=== PATIENT | male | born 1950 | race Caucasian/White ===

== ENCOUNTER 2019-07-06 18:37 | Inpatient (IN) | payer OTHER ==
[~2019-07-06] VITALS: Ht 188 cm; Wt 154.3 kg
--- NOTE | ~2019-07-06 | HEMODYNAMI ---
PATIENT:PINA CHAUDHRY MEDICAL RECORD: [id number] : 50 [facility] ADMISSION DATE: 07/06/19 Generatedon:07/07/201916:04 Patient name: PINA CHAUDHRY Patient #: [id number] : 1950 Date of study: 07/07/2019 Page: Of Hemodynamic Procedure Report Patient Data Patient Demographics Procedure consent was obtained First Name: PINA Gender: Male Last Name: RICHA : 1950 Patient #: [id number] Age: 69 year(s) Race: SSN: [id number] Additional ID: [id number] Contact details Address: [address] [place] [address] State: [place] City: [place] Zip code: [address] Admission Admission Data Admission Date: 07/06/2019 Admission Time: 20:13 Arrival Date: 07/06/2019 Arrival Time: 20:13 Admit Source: Emergency Insurance Payor: Private department health insurance Room #: D.2139 [facility] #: [id number] Height (in.): 73.62 BSA: 2.73 (m2) Height (cm.): 187 BMI: 44.9 (kg/m2) Weight (lbs.): 346.13 Weight (kg.): 157 Lab Results Lab Result Date: 07/07/2019 Lab Result Time: 0:00 Biochemistry Name Units Result Min Max BUN mg/dl 24 --(----)-* 7 18 Creatinine mg/dl 1.3 --(---*)-- 0.6 1.3 eGFR ml/min 58 *-(----)-- 90 120 NONAFRICAN CBC Name Units Result Min Max Hemoglobin g/dl 14.5 --(*---)-- 13.5 17.5 Procedure Procedure Types Cath Procedure Diagnostic Procedure [facility] w/Coronaries Sedation Charges Moderate Sedation up to 30 minutes PCI Procedure Coronary Stent Coronary Stent Initial Procedure Description Procedure Date Procedure Date: 07/07/2019 Procedure Start Time: 15:37 Procedure End Time: 16:00 Procedure Staff Name Function Justin Huggins MD Performing Physician Kathrine Arteaga RT Monitor Margot Sapp RT Scrub Sreedhar Kline RN Nurse Jennifer Woods RN Nurse Indication Angina Procedure Data Cath Procedure Fluoroscopy Diagnostic fluoroscopy Total fluoroscopy Time: 4.6 time: 4.6 min min Diagnostic fluoroscopy Total fluoroscopy dose: dose: 1477 mGy 1477 mGy Contrast Material Contrast Material Type Amount (ml) Isovue 300 101 Entry Location Entry Primary Successful Side Size Upsize Upsize Entry Closure Calvillo ccessful Closure Location (Fr) 1 (Fr) 2 (Fr) Remarks Device Remarks Radial Right 6 Fr Mechanical artery Short Compression Estimated blood loss: 5 ml Diagnostic catheters Device Type Used For End Catheter Placement DIAGNOSTIC Beaumont 110cm 5 Multi-vessel Fr catheter ([id number]) Angiography Procedure Complications No complications Procedure Medications Medication Administration Route Dosage 0.9% NaCl I.V. 100 ml/hr Oxygen etCO2 Nasal cannula 2 l/min Lidocaine 2% added to field 20 Heparin Flush Bag added to field 2 bags (1000units/500ml NS) Radial Cocktail added to field 1 syringe (Verapamil 2mg/Nitro 400mcg/Heparin 1500units) Versed I.V. 2 mg Fentanyl I.V. 50 mcg Versed I.V. 2 mg Fentanyl I.V. 50 mcg Heparin Bolus I.V. 5000 units Hemodynamics Rest BSA: 2.73 (m2) HGB: 14.5 (g/dl) O2 Consumption: Estimated: 326.67 (ml/min) O2 Co nsumption indexed: Estimated:119.66 (ml/min/m) Heart Rate: 80 (bpm) Pressure Samples Time Site Value (mmHg) Purpose Heart Use Rate(bpm) 15:41 LV 100/3,7 Snapshot 91 Gradients Valve Time Site Site Mean SEP/DFP Peak To Heart Use 1 2 (mmHg) (sec/min) Peak Rate (mmHg) (bpm) Aortic 15:42 LV AO 57 Snapshots Pre Cath Intra NCS Post Cath Vital Signs Time Heart Resp SPO2 etCO2 NIBP (mmHg) Rhythm Pain Sedation Rate (ipm) (%) (mmHg) Status Level (bpm) 15:17:59 79 23 97 39.8 166/80(108) NSR 0 (11) 10(A) , No pain 15:22:23 77 21 96 36.8 166/76(103) NSR 0 (11) 10(A) , No pain 15:26:44 74 23 96 38.3 157/76(105) NSR 0 (11) 10(A) , No pain 15:31:02 74 19 96 30.8 152/71(106) NSR 0 (11) 10(A) , No pain 15:35:18 72 24 97 50 148/79(109) NSR 0 (11) 10(A) , No pain 15:39:36 77 20 95 18 151/75(103) NSR 0 (11) 9(A) , No pain 15:43:56 79 19 95 36 138/66(98) NSR 0 (11) 9(A) , No pain 15:48:16 83 21 93 39.8 152/60(94) NSR 0 (11) 9(A) , No pain 15:52:32 83 22 92 50.3 146/71(99) NSR 0 (11) 9(A) , No pain 15:56:56 81 20 92 45 158/77(99) NSR 0 (11) 10(A) , No pain Medications Time Medication Route Dose Verified Delivered Reason Not es Effectiveness by by 15:16:55 0.9% NaCl I.V. 100 Justin Jennifer used for ml/hr Bhavna Chuck procedure MD ESPINAL 15:17:00 Oxygen etCO2 2 l/min Justin Jennifer [facility]ula MD ESPINAL 15:17:06 Lidocaine 2% added 20ml Justin Anderson [facility] WATERS 15:17:11 Heparin Flush added 2 bags Justin Anderson used for [facility] (1000units/500ml field MD WATERS NS) 15:17:16 Radial Cocktail added 1 Justin Anderson used for (Verapamil to syringe Bhavna Bhavna procedure 2mg/Nitro field MD WATERS 400mcg/Heparin 1500units) 15:26:23 Versed I.V. 2 mg Justin Jennifer for sedation St Pina Woods MD, RN 15:26:28 Fentanyl I.V. 50 mcg Justin Jennifer for sedation St Pina Woods MD, RN 15:34:27 Fentanyl I.V. 50 mcg Justin Jennifer for sedation St Pina Woods MD RN 15:34:27 Versed I.V. 2 mg Justin Rodriguez for sedation St Pina Woods MD RN 15:46:57 Heparin Bolus I.V. 5000 Justin Rodriguez for albert ified units St Pina Woods anticoagulation with Dr. MD TEDDY Bass Procedure Log Time Note 18:40:47 Family unavailable. 14:22:44 Diagnostic Cath Status : Urgent 14:24:18 Indication : Angina 14:24:46 Informed consent obtained and on chart 14:24:53 Procedure Status Urgent Heart Cath (IP). 14:24:58 Kathrine Arteaga RT(R) sent for patient. Start room use. 14:25:01 Time tracking: Regular hours (M-F 7:00 - 5:00) 14:25:06 Plan of Care:Hemodynamics will remain stable., Cardiac rhythm will remain stable., Comfort level will be maintained., Respiratory function will remain adequate., Patient/ family verbilizes understanding of procedure., Procedure tolerated without complication., Recovers from procedure without complications.. 14:34:45 Admit Source: Emergency department 14:34:56 Arrival Date: 07/06/2019 8:13:00 PM 14:35:26 Insurance Payor : Private health insurance 14:35:50 Patient Height : 73.62 inches 14:36:10 Patient Weight : 346.13 lbs 14:37:05 Lab Result : BUN 24 mg/dl 14:37:05 Lab Result : eGFR NONAFRICAN 58 ml/min 14:37:05 Lab Result : Hemoglobin 14.5 g/dl 14:37:05 Lab Result : Creatinine 1.3 mg/dl 15:16:45 Vital chart was started 15:16:55 0.9% NaCl 100 ml/hr I.V. was administered by Jennifer Woods RN; used for procedure; Verbal order read back and verified. 15:17:00 Oxygen 2 l/min etCO2 Nasal cannula was administered by Jennifer Woods RN; used for procedure; Verbal order read back and verified. 15:17:06 Lidocaine 2% 20ml vial added to field was administered by Justin Huggins MD; for local anesthetic; Verbal order read back and verified. 15:17:11 Heparin Flush Bag (1000units/500ml NS) 2 bags added to field was administered by Justin Huggins MD; used for procedure; Verbal order read back and verified. 15:17:16 Radial Cocktail (Verapamil 2mg/Nitro 400mcg/Heparin 1500units) 1 syringe added to field was administered by Justin Huggins MD; used for procedure; Verbal order read back and verified. 15:19:50 Patient received from Med II to CCL 2 Alert and oriented. Tansferred to table in Supine position. 15:19:52 Warm blankets applied, and carmen hugger turned on for patient comfort. 15:19:52 Correct patient and procedure confirmed by team. 15:19:53 Baseline sample Acquired. 15:19:53 ECG and BP/O2 sat monitors applied to patient. 15:19:56 Rhythm: sinus rhythm 15:19:58 Full Disclosure recording started 15:20:02 H&P Date Dictated: 07/07/2019 New H&P dictated by physician.. 15:20:10 Pre-procedure instructions explained to patient. 15:20:10 Pre-op teaching completed and patient verbalized understanding. 15:20:22 Patient NPO since Midnight. 15:20:25 Is the patient allergic to Iodine/contrast media? No. 15:20:26 Was the patient premedicated? Yes 15:20:34 Is patient on blood thinner?Yes 15:20:37 ACC The patient was administered the following blood thiners within the last 24 hours: ACCPlavix 15:20:54 Patient diabetic? No. 15:20:56 Previous problem with sedation/anesthesia? No ? 15:21:00 Snore? Yes 15:21:01 Sleep apnea? Yes 15:21:09 Deviated septum? No 15:21:09 Opens mouth fully? Yes 15:21:10 Sticks out tongue? Yes 15:21:14 Airway obstruction? No ? 15:21:34 Dentures? No ? 15:22:11 Pre procedure: right dorsailis pedis pulse 2+ Normal; easily identifiable; not easily obliterated 15:22:21 Pre procedure: left dorsailis pedis pulse 2+ Normal; easily identifiable; not easily obliterated 15:22:29 Patient pain scale 0/10 ?. 15:22:36 IV patent on arrival in left forearm with 0.9% NaCl at O. 15:22:38 Lab results completed and on chart. 15:22:43 Risk of Mortality: 0.1 15:22:48 Risk of blood transfusion: <0.1 15:22:53 Risk of BETH: 2.0 15:23:10 Right Radial & Right Groin area was prepped with chlora-prep and draped in sterile fashion 15:23:11 Alarms reviewed by R. N. 15:23:11 Sharps counted by scrub and verified by R.N. 15:23:13 Physician arrived 15::13 --------ALL STOP TIME OUT------ 15:23:14 Final Timeout: patient, procedure, and site verified with staff and physician. All members of the team are in agreement. 15:23:16 Right Radial & Right Groin site verified by team. 15:23:20 Fire Safety Assessment: A--An alcohol-based skin anteseptic being used preoperatively., C--Open oxygen or nitrous oxide is being used., D--An ESU, laser, or fiber-optic light is being used. 15:23:30 Physical assessment completed. ASA score P 2 - A patient with mild systemic disease as per Justin Huggins MD. 15:26:23 Versed 2 mg I.V. was administered by Jennifer Woods RN; for sedation; Verbal order read back and verified. 15:26:28 Fentanyl 50 mcg I.V. was administered by Jennifer Woods RN; for sedation; Verbal order read back and verified. 15:28:04 3a) 45-59 Moderately reduced kidney function. 15:28:07 Maximum allowable contrast dose (3.7 X eGFR X 0.75)160 ml. 15:28:12 Sedation plan: IV Moderate Sedation Medication:Versed, Fentanyl 15:28:18 Use device set Radial Dx or PCI 15:28:20 ACIST Syringe (06823) opened to sterile field. 15:28:20 Medline Cath Pack ([id number]) opened to sterile field. 15:28:21 Bag Decanter (2002) opened to sterile field. 15:28:21 ACIST Hand Control (62252) opened to sterile field. 15:28:22 ACIST Manifold (61061) opened to sterile field. 15:28:23 Tegaderm 4 x 4 (1626W) opened to sterile field. 15:28:24 MBrace Wrist Support ([id number]) opened to sterile field. 15:28:28 SHEATH 6FR RAIN (3050880) opened to sterile field. 15:28:30 EMERALD Guide Wire (055-705) opened to sterile field. 15:34:27 Fentanyl 50 mcg I.V. was administered by Jennifer Woods RN; for sedation; Verbal order read back and verified. 15:34:27 Versed 2 mg I.V. was administered by Jennifer Woods RN; for sedation; Verbal order read back and verified. 15:36:38 Procedure started. 15:37:11 Local anesthetic to right radial artery with Lidocaine 2% by Justin Huggins MD.INITIAL ACCESS ONLY 15:38:37 A 6 Fr Short sheath was inserted into the Right Radial artery 15:40:25 A DIAGNOSTIC Beaumont 110cm 5 Fr catheter ([id number]) was advanced over the wire and used for Multi-vessel Angiography. 15:41:59 LV hemodynamics recorded. 15:42:00 LV gram done using MCKEON 15:42:05 Injector settings: Ml/sec: 5, Volume: 15, 15:42:18 EF : 55 % 15:42:48 RCA angiography performed. 15:42:52 Injector settings: Ml/sec: 3, Volume: 6, 15:43:52 LCA angiography performed. 15:43:56 Injector settings: Ml/sec: 3, Volume: 6, 15:45:42 Catheter removed. 15:46:21 Proceeding to intervention. 15:46:57 Heparin Bolus 5000 units I.V. was administered by Jennifer Woods RN; for anticoagulation; verified with Dr. Bass Verbal order read back and verified. 15:48:14 INFLATOR Merit BasixCompak (DM4985) opened to sterile field. 15:48:14 Asahi Minamo 300cm wire opened to sterile field. 15:48:15 GUIDE 6FR XBLAD 3.5 catheter ([id number]) opened to sterile field. 15:48:20 ACC Pre-intervention ANA Flow is 3. 15:48:29 6 Fr xblad 3.5 guide catheter was inserted over the wire 15:49:18 minamo wire advanced. 15:51:20 Wire advanced across lesion. 15:52:24 Place stent Inflation Number: 1 A ANIKA OTW 3.5 x 12 stent ([id number]) was prepped and advanced across the Mid CX 90. The stent was deployed at 14 SUSAN for 0:30 (min:sec) 0. 15:53:39 Stent catheter was removed intact over wire. 15:53:40 Wire removed. 15:53:40 Guide catheter removed. 15:55:01 ZEPHYR LARGE TR BAND (677290) opened to sterile field. 15:55:13 Sheath removed intact; hemostasis achieved with Mechanical Compression to the Right Radial artery. 15:55:28 Procedure ended.(Physican Out) 15:56:21 Fluoroscopy time 04.60 minutes. 15:56:25 Fluoroscopy dose: 1477 mGy 15:56:25 Flurop Dose total: 1477 15:56:31 Dose Area Product 91893 mGy/cm. 15:56:36 Contrast amount:Isovue 300 101ml. 15:56:38 Sharps counted by scrub and verified by R.N. 15:56:40 [place] band inflated with 10cc of air. 15:56:41 Insertion/operative site no bleeding no hematoma. 15:56:46 Post right radial artery:stable 15:56:47 Post Procedure Pulses reassessed and unchanged 15:57:18 Post procedure rhythm: unchanged. 15:57:21 Estimated blood loss: 5 ml 15:57:23 Post procedure instruction explained to patient.Patient verbalizes understanding. 15:57:23 Patient needs reinforcement of post procedure teaching. 15:58:40 Procedure type changed to Cath procedure, Diagnostic procedure, C, [facility] w/Coronaries, Sedation Charges, Moderate Sedation up to 30 minutes, PCI procedure, Coronary Stent, Coronary Stent Initial 15:58:42 Procedure and supply charges have been captured, reviewed, submitted and are correct. 15:59:08 Procedure Complication : No complications 15:59:16 Vital chart was stopped 15:59:24 [facility] Findings: MVD- PCI performed (see procedure note) 15:59:26 Operative report dictated upon procedure completion. 15:59:26 See physician's report for complete and final results. 16:00:10 Report given to [facility] II. 16:00:12 Patient transfered to [facility] with Stretcher. 16:00:15 Procedure ended. 16:00:15 Full Disclosure recording stopped 16:00:27 ACT drawn and resulted at 314 seconds. (normal therapeutic range 180-240 seconds). 16:00:39 ACC-PCI Only Patient was given prescriptions, or instructed by Justin Huggins MD to start/continue the following medications upon discharge: Plavix 16:00:40 End room use (Document Last) 16:03:18 End room use (Document Last) 16:03:54 End room use (Document Last) Intervention Summary Intervention Notes Time ActionType Lesion and Equipment Action# Pressure Duration Attributes Used 15:52:24 Place stent Mid CX ANIKA OTW 3.5 1 14 00:30 x 12 stent ([id number]) Device Usage Item Name Manufacture Quantity Catalog Hospital Part Current Mini mal Lot# / Number Charge Number Stock Stock Serial# Code ACIST Syringe Acist 1 48616 213324 760007 [id number] 20 (14304) Medical Systems Inc Medline Cath Medline 1 [id number] 814167 44691 110051 5 Pack ([id number]) Bag Decanter Microtek 1 2001S 426188 00661 332595 5 (2001S) Medical Inc. ACIST Hand Acist 1 44955 747397 026081 215971 5 Control Medical (34352) Systems Inc ACIST Acist 1 67385 224920 250567 809642 5 Manifold Medical (62145) Systems Inc Tegaderm 4 x 3M 1 1626W 153393 138069 512372 5 4 (1626W) MBrace Wrist Advanced 1 140-0250-00 987162 30125 447083 5 Support Vascular ([id number]) Dynamics SHEATH 6FR Cardinal 1 3939890 752230 5568167 142404 5 [facility] (8286159) EMERALD Guide Cardinal 1 502-455 233282 019198 443767 5 Wire CENTRI Technology (502455) DIAGNOSTIC Terumo 1 40-5363 111978 461660 953542 5 Beaumont 110cm 5 Fr catheter (996111) INFLATOR Merit 1 NJ0103 948710 472329 374007 15 [facility] Medical BasixCompak (ZG9510) [facility] Mino [facility] Intecc 1 [id number] 755426 915559 0 300cm wire GUIDE 6FR Cardinal 1 [id number] 362295 687186 609732 10 XBLAD 3.5 Health catheter (54497857) ANIKA OTW 3.5 Medtronic 1 [id number] 429048 1247960 625564 5 [id number] x 12 stent ([id number]) ZEPHYR LARGE Cardinal 1 029889 892592 6167328 375284 5 [facility] (200498) Signature Audit [place] Stage Time Signature Unsigned Intra-Procedure 07/07/2019 Kathrine Arteaga 4:03:18 PM RT(R) Intra-Procedure 07/07/2019 Sreedhar Kline RN 4:03:54 PM Intra-Procedure 07/07/2019 Justin Burgos 4:04:48 PM Pina WATERS Signatures Performing Physician : Signature : Justin Huggins MD Date : Time : Monitor : Kathrine Arteaga RT Signature : Date : Time : Nurse : Sreedhar Kline RN Signature : Date : Time : Nurse : Jennifer Woods RN Signature : Date : Time : [facility] [address] [place] [address]
[2019-07-06] MEDS ORDERED: ULORIC40 MG PO (19:27)
[2019-07-06] MEDS ORDERED: HYTRIN5 MG PO (19:28)
[2019-07-06] MEDS ORDERED: ELAVIL25 MG PO (19:28)
[2019-07-06] MEDS ORDERED: HYDROCHLOROTHIA25 MG PO (19:28)
[2019-07-06] MEDS ORDERED: ALDACTONE25 MG PO (19:29)
[2019-07-06 19:30] VITALS: BP 128/86
[2019-07-06 19:56] LABS: BASOPHILS 0.3 % (0-2); EOSINOPHILS 2.5 % (0-7); HEMATOCRIT 47.2 % (42.0-54.0); HEMOGLOBIN 15.3 g/dL (13.5-17.5); IMMATURE GRANULOCYTES 0.3 % (0-5); LYMPHOCYTES 10.3 % (15-50); MCH 30.1 pg (26.0-34.0); MCHC 32.4 g/dL (31.0-37.0); MCV 92.9 fL (80.0-100.0); MEAN PLATELET VOLUME 11.2 fL (7.4-10.4); MONOCYTES 8.2 % (2-11); NEUTROPHILS 78.4 % (40-80); PLATELET COUNT 182 10x3/uL (130-400); RBC 5.08 10x6/uL (4.20-6.10); RDW 13.2 % (11.5-14.5); WBC 11.9 10x3/uL (4.8-10.8)
[2019-07-06 20:08] LABS: CALC OSMOLALITY 286 mosm/kg (275-300); CALCIUM 9.2 mg/dL (8.5-10.1); CARBON DIOXIDE 28.2 mmol/L (21.0-32.0); CHLORIDE - SERUM 104 mmol/L (98-107); CREATININE - SERUM 1.3 mg/dL (0.6-1.3); GLUCOSE 104 mg/dL (74-106); POTASSIUM - SERUM 3.5 mmol/L (3.5-5.1); SODIUM 142 mmol/L (136-145); UREA NITROGEN 24 mg/dL (7-18); eGFR NON AFRICAN AMERICAN 58 mL/min (90-120)
[2019-07-06 20:23] LABS: APTT 26.2 SECONDS (22.8-39.4); INR 1.03 (0.85-1.17); PROTIME 13.5 SECONDS (11.6-15.0)
[2019-07-06 20:30] LABS: ALBUMIN 3.4 g/dL (3.4-5.0); ALKALINE PHOSPHATASE 53 U/L (46-116); ALT (SGPT) 34 U/L (10-68); BILIRUBIN - TOTAL 0.58 mg/dL (0.2-1.3); CKMB 20.2 U/L (0.0-3.6); CREATINE KINASE 258 UL (21-232); MAGNESIUM - SERUM 1.5 mg/dL (1.8-2.4); PROTEIN - SERUM 7.7 g/dL (6.4-8.2)
[2019-07-06 20:33] LABS: TROPONIN-I 5.527 ng/mL (0.000-0.060)
--- NOTE | 2019-07-06 21:08 | NUR ---
NOTIFIED DR BELLA OF TROPONIN. 0 NEW ORDERS
[2019-07-06 22:19] VITALS: BP 126/63
--- NOTE | 2019-07-06 23:30 | NUR ---
PATIENT TO THE FLOOR, PATIENT UPSET THAT WE HAVE NO FOOD FOR HIM TO EAT. NO OTHER NEEDS AT THIS TIME. CALL LIGHT WITHIN REACH AND BED IN LOWEST LOCKED POSITION.
--- NOTE | 2019-07-06 23:47 | NUR ---
IAN CARDIO DANK RETURNED PHONE CALL, INFORMED DOCTOR OF PATIENT'S CARDIAC LABS. DOCTOR STATED TO START HOME MEDICATIONS AND A ODER FOR PALVIX ONE TIME. WILL FOLLOW DOCTORS ORDERS
[2019-07-07 04:30] VITALS: BP 110/62
[2019-07-07 05:32] LABS: BASOPHILS 0.2 % (0-2); EOSINOPHILS 3.7 % (0-7); HEMATOCRIT 44.8 % (42.0-54.0); HEMOGLOBIN 14.5 g/dL (13.5-17.5); IMMATURE GRANULOCYTES 0.4 % (0-5); LYMPHOCYTES 15.7 % (15-50); MCHC 32.4 g/dL (31.0-37.0); MCV 92.6 fL (80.0-100.0); MEAN PLATELET VOLUME 11.3 fL (7.4-10.4); MONOCYTES 8.3 % (2-11); NEUTROPHILS 71.7 % (40-80); PLATELET COUNT 186 10x3/uL (130-400); RBC 4.84 10x6/uL (4.20-6.10); RDW 13.4 % (11.5-14.5)
[2019-07-07 05:52] LABS: ANION GAP 12.3 mmol/L (8-16); CALCIUM 8.7 mg/dL (8.5-10.1); CARBON DIOXIDE 29.1 mmol/L (21.0-32.0); CREATININE - SERUM 1.3 mg/dL (0.6-1.3); MAGNESIUM - SERUM 1.5 mg/dL (1.8-2.4); PHOSPHOROUS 4.1 mg/dL (2.5-4.9); POTASSIUM - SERUM 3.4 mmol/L (3.5-5.1)
[2019-07-07 06:01] LABS: WBC 8.5 10x3/uL (4.8-10.8)
--- NOTE | 2019-07-07 06:23 | NUR ---
I have reviewed this patient and I concur with the Shift Assessment completed by the Licensed Practical Nurse today this shift.
--- NOTE | 2019-07-07 08:01 | NUR ---
PATIENT IS RESTING QUIETLY ON HIS BACK IN BED AT THIS IMTE. HE IS ON HIS BIPAP AT THIS TIME AND DENIES ANY NEEDS. HE IS NPO, HE CAME IN LAST NIGHT WITH CHEST PAIN. HE HAS AN ELEVATED TRIPONIN. DR BELLA IS AWARE. HE IS NPO. HE IS AWAKE AND ALERT. SAFETY PROTOCOL IN PLACE.
[2019-07-07 09:25] LABS: CHOL - HDL RATIO 4.8 ratio (2.3-4.9); LDL-HDL RATIO 2.7 ratio (1.5-3.5)
[2019-07-07 10:55] VITALS: BP 126/75
--- NOTE | 2019-07-07 13:59 | NUR ---
PATIENT HAS BEEN PREOPED. CONSENTS ARE SIGNED AND IN THE CHART. PREOP MEDICATIONS GIVEN. PATIENT HAS HAD HIS HIPPA CLEANSE. HE IS RESTING QUIETLY ON HIS BACK AND HAS SOME ANXIETY. STATES THAT HE HAS NEVER HAD TO COME TO THE HOSPITAL BEFORE.
[2019-07-07 14:09] VITALS: BP 119/62; Ht 188 cm; Wt 154.3 kg
[2019-07-07 14:13] VITALS: BP 119/62
--- NOTE | 2019-07-07 16:11 | NUR ---
JUST RECIEVED REPORT FROM DIE FINISHER FORGING. PATIENT GOT ONE STENT TO THE CIRC OM, OBTUSE MARGINAL. HE RECIEVED 4000U HEPARIN, 4MG VERSAID AND 100 FENTNYL. HE HAS A ZEFER BAND TO THE RIGHT RADIAL. HE IS ON HIS WAY BACK TO THE FLOOR NOW.
--- NOTE | 2019-07-07 17:23 | NUR ---
PATIENT ARRIVED TO THE FLOOR AT 1630. VITAL SIGNS STABLE. HE IS ALERT AND AWAKE.
[2019-07-07 20:00] VITALS: BP 123/50
[2019-07-08] VITALS: BP 118/70
[2019-07-08 04:00] VITALS: BP 116/65
--- NOTE | 2019-07-08 04:47 | NUR ---
PT RIGHT HAND PALM AND POINTER FINGER MILDLY PUFFY AND SWOLLEN. THERE IS A RAISED Area ABOVE RIGHT RADIAL SITE. CAPILLARY REFILL LESS THAN THREE SECONDS. NO BRUISING OR PAIN. PT A/O RR EVEN AND UNLABORED. VSS. WILL CONTINUE TO MONITOR.
--- NOTE | 2019-07-08 05:10 | NUR ---
I have reviewed this patient and I concur with the Shift Assessment completed by the Licensed Practical Nurse today this shift.
[2019-07-08 06:59] LABS: BASOPHILS 0.3 % (0-2); EOSINOPHILS 4.5 % (0-7); HEMATOCRIT 45.9 % (42.0-54.0); IMMATURE GRANULOCYTES 0.4 % (0-5); LYMPHOCYTES 20.3 % (15-50); MCH 30.1 pg (26.0-34.0); MCHC 32.7 g/dL (31.0-37.0); MCV 92.2 fL (80.0-100.0); MEAN PLATELET VOLUME 11.4 fL (7.4-10.4); MONOCYTES 7.7 % (2-11); NEUTROPHILS 66.8 % (40-80); PLATELET COUNT 185 10x3/uL (130-400); RBC 4.98 10x6/uL (4.20-6.10); RDW 13.4 % (11.5-14.5); WBC 8.9 10x3/uL (4.8-10.8)
[2019-07-08 07:17] LABS: ANION GAP 13.1 mmol/L (8-16); CALCIUM 8.7 mg/dL (8.5-10.1); CARBON DIOXIDE 29.8 mmol/L (21.0-32.0); CREATININE - SERUM 1.5 mg/dL (0.6-1.3); MAGNESIUM - SERUM 1.5 mg/dL (1.8-2.4); PHOSPHOROUS 4.2 mg/dL (2.5-4.9); POTASSIUM - SERUM 3.9 mmol/L (3.5-5.1)
--- NOTE | 2019-07-08 07:46 | NUR ---
PATIENT IS SITTING UP IN BED C/O BACK PAIN. REPORTS THAT HE NORMALLY TAKES 3 IBPROPHEN IN THE MORNING. HE WANTS IBPROPHEN THIS MORNING. ON THURSDAY NIGHT HE SAYS HE HAD A BLACK STOOL. HE HAS NOT HAD A B/M HERE YET TO MY KNOWLEDGE. HIS RIGHT HAD HAS MILD EDEMA, STRONG PULSE AND NO HEMATOMA WHERE THE ANGIOGRAM WAS COMPLETED YESTERDAY. PATIENT SHOULD BE DISCHARGED TODAY.
--- NOTE | 2019-07-08 08:49 | EC ---
PATIENT:PINA CHAUDHRY DATE OF SERVICE: 07/07/19 SEX: M MEDICAL RECORD: [id number] DATE OF : 50 LOCATION:D.M2 D.213 AGE OF PATIENT: 69 ADMISSION DATE: 07/07/19 REFERRING PHYSICIAN: INTERPRETING PHYSICIAN: NAGI BELLA MD ECHOCARDIOGRAM REPORT ECHO CHARGES 4 ECHO COMPLETE Date: 07/07/19 CLINICAL DIAGNOSIS: CHEST PAIN,ELEVATED CARDIAC ENZYMES ECHOCARDIOGRAPHIC MEASUREMENTS (adult normal given) AC root (d.<3.7cm) 3.8 cm LV Septum d (<1.2 cm> 1.5 cm Valve Excursion 1.9 cm LV Septum (systole) 2.0 cm Left Atria (s.<4.0cm> 4.0 cm LVPW d(<1.2cm) 1.9 cm RV (d.<2.3cm) 4.3 cm LVPW (sytole) 2.5 cm LV diastole(<5.6CM) 5.8 cm MV E-F(>70mm/sec) cm LV systole 3.7 cm LVOT Diameter 2.3 cm MV exc.(>10mm) cm Est.ejection fraction (50-75%) % DOPPLER: LVIT cm/sec A 113.0cm/sec E 71.0 cm/sec LA cm/sec RVSP 18 mmHg LVOT 109 cm/sec AOP1/2T m/s Asc. Ao 121 cm/sec RVOT 76 cm/sec RA cm/sec PA 105 cm/sec AV Gradient Peak 5.82 mmHg AV Mean 2.83 mmHg AV Area 4.0 cm MV Gradient Peak 3.95 mmHg MV Mean 1.65 mmHg MV Area cm COMMENTS: Special Education Itinerant Teacher: 2 GURINDER TATE Data Processing Operator: 3 Dr. Bass TAPE# PACS Pericardial Effusion N DATE OF SERVICE: 07/07/2019 Adequate 2D, color flow imaging, spectral Doppler, and M-Mode. LVH is present. LV internal dimensions are normal. Wall motion is normal. EF is greater than or equal to 55%. Aortic valve is sclerosed without stenosis by Doppler interrogation. The left atrium is upper limits of normal at 4.0 cm. Mitral valve shows no prolapse. Trace MR. Right-sided chambers grossly normal. Mild TR. ECHOCARDIOGRAM REPORT [id number] PINA CHAUDHRY TRANSINT:[id number] Voice Confirmation ID: [id number] DOCUMENT ID: [id number] NAGI BELLA MD at 0849 CC: [id number] DICTATION DATE: 07/07/19 1604 GLASS BEVELLER: 07/08/19 0022 [facility] [address] [id number]
--- NOTE | 2019-07-08 08:49 | OP ---
PATIENT NAME: PINA CHAUDHRY MEDICAL RECORD: [id number] :50 LOCATION:D.M2 D.2139 ADMISSION DATE:07/07/19 SURGEON: NAGI BELLA MD DATE OF OPERATION: 07/07/2019 PROCEDURE: Left heart catheterization, selective coronary angiography, right radial approach. CATHETERS: Radial sheath, Burdick catheter. The procedure was well tolerated. The patient was returned to [facility]. Sheath was removed. TR band was placement. FINDINGS: Left ventriculography in 30-degree MCKEON view, mid inferior hypokinesis. LV function was preserved at 50%. CORONARY ANATOMY: LEFT MAIN: Left main is free of disease. LAD: Had luminal irregularities, no flow obstructive disease. CIRCUMFLEX: Circumflex after takeoff of first OM has a tight 89% stenosis of the infarct related artery. RIGHT CORONARY ARTERY: Large, dominant artery, free of disease. IMPRESSION: Intervention to circumflex momentarily. DESCRIPTION OF PROCEDURE: Using indwelling sheath, XB LAD guiding catheter provided good guide catheter support followed by 300-cm ____ wire down this portion of vessel. Stent deployed was a 3.5 x 12 mm nondrug-eluting stent at 14 atmospheres. Angiography shows excellent resolution of 80% to 90% stenosis, no significant residual. ANA flow was 3 throughout the procedure. Heparin and Integrilin were used during the case. Sheath was closed with ExoSeal device. TRANSINT:[id number] Voice Confirmation ID: [id number] DOCUMENT ID: [id number] NAGI BELLA MD at 0849 CC: [id number] DICTATION DATE: 07/07/19 1603 LIBRARY TECHNICAL ASSISTANT: 07/08/19 0056 [facility]M IN [facility] [address] [id number]
--- NOTE | 2019-07-08 08:49 | CN ---
PATIENT NAME:PINA CHAUDHRY MEDICAL RECORD: [id number] : 50 LOCATION:Tim D.2139 ADMIT DATE: 07/07/19 ACCOUNT: [id number] CONSULTING PHYSICIAN: NAGI BELLA MD REFERRING PHYSICIAN: NAGI PATRICIA MD DATE OF CONSULTATION: 07/07/2019 HISTORY OF PRESENT ILLNESS: A 69-year-old gentleman with no known history of coronary artery disease, has a history of hypertension, history of gouty arthritis, quit smoking a few years back, presented with chest pain felt like indigestion, no relief with Pepto-Bismol or Prilosec, presented to the ER, found to have elevated cardiac enzymes consistent with NSTEMI. We are asked to see him concerning his cardiovascular status. PAST MEDICAL HISTORY: 1. History of gouty arthritis. 2. Hypertension. ALLERGIES: PENICILLIN. SOCIAL HISTORY: Nonsmoker, nondrinker. Does stay active, but no set exercise program. Easily takes care of all his ADLs. MEDICATIONS: Include Aldactone 25 every day, Hytrin 5 mg p.o. daily, hydrochlorothiazide 25 every day, Uloric 40 mg p.o. every day. REVIEW OF SYSTEMS: The patient reports easy bruising but reports no swollen glands. The patient reports no fever, no night sweats, no significant weight gain, no significant weight loss. No significant exercise tolerance. The patient reports no dry eyes, no irritation, no vision change. Patient reports no difficulty hearing and no ear pain. Patient reports no frequent nose bleeds or nose and sinus problems. Patient reports on arm pain on exertion. No shortness of breath while lying down. No history of heart murmur. Patient reports no cough, no wheezing or coughing up blood. Patient reports no abdominal pain, no vomiting. Normal appetite. No diarrhea and not vomiting blood. No nausea and no constipation. Patient reports no incontinence. No difficulty urinating. No hematuria. No increased frequency. Patient reports no muscle aches. No weakness, no arthralgias, no back pain. No swelling of the extremities. Patient reports no abnormal mole, no jaundice, no rashes. Reports no loss of consciousness. No weakness and no numbness. No seizures, dizziness, or headaches. The patient reports no depression, no sleep disturbance, feeling safe in a relationship and no alcohol abuse. Patient reports on fatigue. Reports no runny nose or sinus pressure. No itching, no hives, and no frequent sneezing. PHYSICAL EXAMINATION: GENERAL: Pleasant gentleman, in no acute distress, appears stated age. VITAL SIGNS: Blood pressure 110/62, pulse 73 and regular. HEENT: Normocephalic, atraumatic. NECK: No JVD or bruit. HEART: Regular, S4 gallop is noted. LUNGS: Good air excursion. ABDOMEN: Soft, nontender. EXTREMITIES: Pulses are preserved, 1+ with no edema. CONSULT REPORT [id number] PINA CHAUDHRY DIAGNOSTIC DATA: EKG shows nonspecific ST-T changes inferolaterally. IMPRESSION: NSTEMI. PLAN: For angiography, intervention based on the above. TRANSINT:[id number] Voice Confirmation ID: [id number] DOCUMENT ID: [id number] NAGI BELLA MD at 0849 CC: [id number] DICTATION DATE: 07/07/19 0837 REROLLER HAND: 07/07/19 1217 [place] [address]
[2019-07-08 09:50] VITALS: BP 127/76
[2019-07-08] MEDS ORDERED: PLAVIX75 MG PO (10:26)
[2019-07-08 10:59] LABS: ALBUMIN 3.2 g/dL (3.4-5.0); BILIRUBIN - DIRECT 0.11 mg/dL (0.00-0.30); BILIRUBIN - INDIRECT 0.33 mg/dL (0.00-1.00); BILIRUBIN - TOTAL 0.44 mg/dL (0.2-1.3); PROTEIN - SERUM 6.9 g/dL (6.4-8.2)
[2019-07-08] MEDS ORDERED: LIPITOR40 MG PO (11:33)
--- NOTE | 2019-07-08 11:33 | NUR ---
PAGING MAEGAN TO GET HIS OK ON DC.
[2019-07-08] MEDS ORDERED: BAYER CHEWABLE81 MG PO (11:34)
--- NOTE | 2019-07-08 13:43 | NUR ---
DISCHARGED PATIENT. DISCHARGE TEACHING DONE AND PAPERS SIGNED. IV REMOVED WITH CATHETER INTACT FROM LEFT HAND. REDRESSED SIGHT ON RIGHT WRIST WITH A TAGODERM AND 2X2. PATIENT WENT DOWNSTAIRS BY WHEELCHAIR AND TOOK ALL HIS PERSONAL BELONGINGS WITH HIM.
--- NOTE | 2019-07-08 17:41 | MORECARE ---
CASE MANAGEMENT DISCHARGE SUMMARY PATIENT: PINA CHAUDHRY UNIT: [id number] ADM DATE: 07/07/19 AGE: 69 : 50 SEX: M ROOM/BED: D.2139 AUTHOR: CAMILLE PARRA PHYSICIAN: REFERRING PHYSICIAN: NAGI PATRICIA MD DATE OF SERVICE: 07/08/19 Discharge Plan Patient Name: PINA CHAUDHRY [facility] [facility] 1950 Planned Disposition: Home Anticipated Discharge Date: 07/08/19 Discharge Date: 07/08/2019 Expected LOS: 1 Initial Reviewer: [email or web address] Initial Review Date: 07/08/2019 Generated: 07/08/19 6:41 pm Patient Name: PINA CHAUDHRY Page 24469 at 1741 All edits/amendments must be made on the electronic document DICTATION DATE: 07/08/191740 PANTOGRAPH MACHINE OPERATOR: SHERLYN 07/08/191740 RPT#: [id number] DC DATE:07/08/19 STATUS: DIS IN [facility] [address] [facility] [place] [address] END OF REPORT
--- NOTE | 2019-07-08 17:50 | MORECARE ---
CASE MANAGEMENT DISCHARGE SUMMARY PATIENT: PINA CHAUDHRY UNIT: [id number] ADM DATE: 07/07/19 AGE: 69 : 50 SEX: M ROOM/BED: D.2139 AUTHOR: FIDEL,DOC PHYSICIAN: REFERRING PHYSICIAN: NAGI PATRICIA MD DATE OF SERVICE: 07/08/19 Discharge Plan Patient Name: PINA CHAUDHRY Facility: [facility]:[place] : 1950 Planned Disposition: Home Anticipated Discharge Date: 07/08/19 Discharge Date: 07/08/2019 Expected LOS: 1 Initial Reviewer: [email or web address] Initial Review Date: 07/08/2019 Generated: 07/08/19 6:49 pm Comments DCP- Discharge Planning Updated by [email or web address]: Avni Pinzon on 07/08/19 4:[address] Patient Name: PINA CHAUDHRY Admission Status: ER Accout number: [id number] Admission Date: 07-07-2019 : 1950 Admission Diagnosis: Attending: CHARLIE Current LOS: 1 Anticipated DC Date: 07-08-2019 Planned Disposition: Home Primary Insurance: [employer] Discharge Planning Comments: CM MET WITH PT IN ROOM TO DISCUSS DISCHARGE PLANNING AND NEEDS. PT REPORTS LIVING AT HOME INDEPENDENTLY WITH SPOUSE ON A FARM. PT HAS CPAP FROM [facility]. PT HAS NO OUTSIDE SERVICES ASSISTING IN THE HOME. CM DISCUSSED AVAILABILITY OF HOME HEALTH, REHAB SERVICES AND MEDICAL EQUIPMENT. PT DENIES DISCHARGE NEEDS, REPORTS HIS GRANDCHILDREN ARE HERE TO PICK HIM UP FOR DISCHARGE HOME. PT WOULD LIKE TO SEE THE DOCTOR PRIOR TO DISCHARGE. LEASE ATTENDANT SHAQUILLE NOTIFIED. Crib Pad Maker: Avni Pinzon DCPIA - Discharge Planning Initial Assessment Updated by [email or web address]: Avni Pinzon on 07/08/19 5:44 pm * Is the patient Alert and Oriented? Yes * How many steps to enter\exit or inside your home? RAMP * PCP DR. CASEY * [facility] * Preadmission Environment Home with Family * ADLs Independent * Equipment CPAP * Other Equipment [facility] * List name and contact numbers for known caregivers / representatives who currently or will assist patient after discharge: JUSTIN MACIAS, DTR, JULIANNA CASTLE, SON, * Verbal permission to speak to the caregivers and representatives has been obtained from the patient. N/A * Community resources currently utilized None * Please name any agencies selected above. NONE * Additional services required to return to the preadmission environment? No * Can the patient safely return to the preadmission environment? Yes * Has this patient been hospitalized within the prior 30 days at any hospital? No Last DP export: 07/08/19 4:41 p Patient Name: PINA CHAUDHRY Page 44969 at 1750 All edits/amendments must be made on the electronic document DICTATION DATE: 07/08/191748 RESIDENTIAL LEASING AGENT: SHERLYN 07/08/191748 RPT#: [id number] DC DATE:07/08/19 STATUS: DIS IN [facility] [address] [place] [address] END OF REPORT
== END 2019-07-08 13:49 | disposition home or self-care (01) | DRG 249 ==
LOC: D.ER 18:37 → D.M2 20:13 → OBSVTIME 21:27 → D.M2 07-07 17:04
PROVIDERS: Family Medicine; Internal Medicine Interventional Cardiology; ADMIT Family Medicine; ATTEND Family Medicine
PROC: B2151ZZ Fluoroscopy of Left Heart using Low Osmolar Contrast (ICD-10-PCS; 2019-07-07)
PROC: B2111ZZ Fluoroscopy of Multiple Coronary Arteries using Low Osmolar Contrast (ICD-10-PCS; 2019-07-07)
PROC: 02703DZ Dilation of Coronary Artery, One Artery with Intraluminal Device, Percutaneous Approach (ICD-10-PCS; principal; 2019-07-07 14:24)
PROC: 4A023N7 Measurement of Cardiac Sampling and Pressure, Left Heart, Percutaneous Approach (ICD-10-PCS; 2019-07-07 14:24)
DX: I21.4 Non-ST elevation (NSTEMI) myocardial infarction (principal); Z68.41 Body mass index [BMI] 40.0-44.9, adult; I25.10 Atherosclerotic heart disease of native coronary artery without angina pectoris; E83.42 Hypomagnesemia; I11.0 Hypertensive heart disease with heart failure; I50.9 Heart failure, unspecified; E66.01 Morbid (severe) obesity due to excess calories; K21.9 Gastro-esophageal reflux disease without esophagitis

== ENCOUNTER 2020-04-03 10:49 | Day surgery (SDC) | payer OTHER ==
[~2020-04-03] VITALS: Ht 188 cm; Wt 156.8 kg
--- NOTE | ~2020-04-03 | OP ---
PATIENT NAME: PINA KERN MEDICAL RECORD: [id number] :50 LOCATION:D.CAT ADMISSION DATE: SURGEON: NAGI BELLA MD DATE OF OPERATION: 04/03/2020 PROCEDURE: Lead portion of permanent pacemaker placement. INDICATION: Sick sinus syndrome with pauses and paroxysmal atrial fibrillation. SURGEON: Juvenal Gil MD DESCRIPTION OF PROCEDURE: After left subclavian was cannulated via modified Seldinger technique via Dr. Gil first under fluoroscopic guidance, I placed the RV lead in the RV apex without difficulty. After adequate thresholds and R waves were obtained, again under fluoroscopic guidance, we placed the right atrial lead in the right atrial appendage without difficulty. After P waves and thresholds were obtained, leads were attached to appropriate poles of the generator and the pocket was closed via Dr. Gli. IMPRESSION: Successful lead portion of permanent pacemaker placement of Pina Kern. ESTIMATED BLOOD LOSS: Minimal. COMPLICATIONS: None. DISPOSITION: To the floor, stable. TRANSINT:[id number] Voice Confirmation ID: [id number] DOCUMENT ID: [id number] NAGI BELLA MD CC: [id number] DICTATION DATE: 04/03/20 1429 BOOTH SUPERVISOR: 04/03/20 2328 [facility] SDC 04/03/20 [facility] [address] [id number]
--- NOTE | ~2020-04-03 | HEMODYNAMI ---
PATIENT:PINA CHAUDHRY MEDICAL RECORD: [id number] : 50 LOCATION:D.CAT ADMISSION DATE: 04/03/20 Generatedon:04/03/202014:41 Patient name: PINA CHAUDHRY Patient #: [id number] : 1950 Date of study: 04/03/2020 Page: Of Hemodynamic Procedure Report Patient Data Patient Demographics Procedure consent was obtained First Name: PINA Gender: Male Last Name: RICHA : 1950 Patient #: [id number] Age: 69 year(s) Race: SSN: [id number] Additional ID: [id number] Contact details Address: [place] [address] State: [place] City: [place] Zip code: [address] Past Medical History Allergies Allergen Reaction Date Comments Reported Other allergy 04/03/2020 N Admission Admission Data Admission Date: 04/03/2020 Admission Time: 10:49 Arrival Date: 04/03/2020 Arrival Time: 0:00 Admit Source: Other Insurance Payor: Medicare [facility] #: [id number] Height (in.): 73 BSA: 2.71 (m2) Height (cm.): 185.42 BMI: 45.37 (kg/m2) Weight (lbs.): 343.92 Weight (kg.): 156 Lab Results Lab Result Date: 04/03/2020 Lab Result Time: 0:00 Biochemistry Name Units Result Min Max BUN mg/dl 16 --(---*)-- 7 18 Creatinine mg/dl 1.2 --(---*)-- 0.6 1.3 CBC Name Units Result Min Max Hemoglobin g/dl 14.1 --(*---)-- 13.5 17.5 Procedure Procedure Types Cath Procedure Diagnostic Procedure PPM/ICD PPM Dual Implant Sedation Charges Moderate Sedation up to 30 minutes Procedure Description Procedure Date Procedure Date: 04/03/2020 Procedure Start Time: 13:57 Procedure End Time: 14:36 Procedure Staff Name Function Justin Huggins MD Performing Physician Juvenal Gil MD Assisting physician Margot Sapp RT Monitor Sreedhar Kline RN Nurse Ignacia Lemus RT Scrub Procedure Data Cath Procedure Fluoroscopy Diagnostic fluoroscopy Total fluoroscopy Time: 5.6 time: 5.6 min min Diagnostic fluoroscopy Total fluoroscopy dose: 351 dose: 351 mGy mGy Estimated blood loss: 10 ml Procedure Complications No complications Procedure Medications Medication Administration Route Dosage Oxygen etCO2 Nasal cannula 2 l/min Lidocaine 1% added to field 20 Vancomycin I.V.P.B 1 g Vancomycin Topical 1 g Irrigation 0.9% NaCl I.V. 50 ml/hr Versed I.V. 2 mg Fentanyl I.V. 100 mcg Versed I.V. 2 mg Fentanyl I.V. 100 mcg Versed I.V. 2 mg Hemodynamics Rest BSA: 2.71 (m2) O2 Consumption: Estimated: 368.56 (ml/min) O2 Consumption indexed : Estimated:136 (ml/min/m) Pre Cath Intra NCS Post Cath Vital Signs Time Heart Resp SPO2 etCO2 NIBP (mmHg) Rhythm Pain Sedation Rate (ipm) (%) (mmHg) Status Level (bpm) 13:50:36 76 22 97 39.8 118/81(105) NSR (Missing) 10(A) 13:54:48 74 20 98 38.3 124/78(109) NSR (Missing) 10(A) 13:59:02 74 19 97 21.8 126/78(103) NSR (Missing) 10(A) 14:03:24 86 16 96 40.6 113/72(88) NSR (Missing) 9(A) 14:07:32 73 20 94 43.6 108/78(106) NSR (Missing) 9(A) 14:12:35 77 18 96 50.3 132/74(109) NSR (Missing) 9(A) 14:16:51 24 18 96 46.5 128/73(101) NSR (Missing) 10(A) 14:21:01 82 20 97 48 128/75(91) NSR (Missing) 10(A) 14:25:13 80 19 97 47.3 129/77(104) NSR (Missing) 10(A) 14:29:25 78 20 97 45.8 124/76(93) NSR (Missing) 10(A) 14:33:35 78 19 97 43.5 128/79(111) NSR (Missing) 10(A) Medications Time Medication Route Dose Verified Delivered Reason Notes Effecti veness by by 13:45:48 Vancomycin I.V.P.B 1 g Spiritism Buffie used for Chantal Kline RN procedure 13:50:28 Oxygen etCO2 2 Spiritism Buffie used for Nasal l/min Chantal Kline RN procedure cannula 13:55:09 0.9% NaCl I.V. 50 Spiritism Buffie Per ml/hr Chantal Kline RN physician 13:55:15 Versed I.V. 2 mg Spiritism Buffie for Chantal Kline RN sedation 13:55:21 Fentanyl I.V. 100 Spiritism Buffie for mcg Chantal Kline RN sedation 13:57:38 Lidocaine added 20ml Spiritism Spiritism for local 1% to vial Chantal Gil MD anesthetic field x2 13:57:58 Vancomycin Topical 1 g Spiritism Spiritism used for Irrigation Chantal Gil MD procedure 14:01:33 Versed I.V. 2 mg Spiritism Buffie for Chantal Kline RN sedation 14:01:37 Fentanyl I.V. 100 Spiritism Buffie for mcg Chantal Kline RN sedation 14:19:23 Versed I.V. 2 mg Spiritism Buffie for Chantal Kline RN sedation Procedure Log Time Note 13:23:45 Arrival Date: 04/03/2020 12:00:00 AM 13:23:48 Admit Source: Other 13:24:18 Insurance Payor : Medicare 13:25:08 Patient Height : 73 inches 13:25:16 Patient Weight : 343.92 lbs 13:26:00 Lab Result : Hemoglobin 14.1 g/dl 13:26:00 Lab Result : Creatinine 1.2 mg/dl 13:26:00 Lab Result : BUN 16 mg/dl 13:26:41 Procedure Status Elective Heart Cath (OP). 13:27:28 Ignacia VAZQUEZ(R) (CV) sent for patient. Start room use. 13::41 Time tracking: Regular hours (M-F 7:00 - 5:00) 13:27:45 Plan of Care:Hemodynamics will remain stable., Cardiac rhythm will remain stable., Comfort level will be maintained., Respiratory function will remain adequate., Patient/ family verbilizes understanding of procedure., Procedure tolerated without complication., Recovers from procedure without complications.. 13:28:03 Patient received from Pre/Post Procedure Room to CCL 3 Alert and oriented. Tansferred to table in Supine position. 13:28:06 Signed procedure consent form obtained from patient. 13:28:07 Warm blankets applied, and carmen hugger turned on for patient comfort. 13:28:08 Correct patient and procedure confirmed by team. 13:28:09 ECG and BP/O2 sat monitors applied to patient. 13:28:38 H&P Date Dictated: 03/22/2020 Within 30 days and on chart.. 13:28:41 Pre-procedure instructions explained to patient. 13:28:43 Family in patients room. 13:28:46 Patient NPO since Midnight. 13:29:21 Patient allergic to Other allergyPCN 13:29:26 Was the patient premedicated? Yes 13:29:46 Is patient on blood thinner?No 13:41:32 Patient diabetic? No. 13:41:37 Snore? Yes 13:41:38 Sleep apnea? Yes 13:41:44 Dentures? No ? 13:41:49 Patient pain scale 0/10 ?. 13:41:58 IV patent on arrival in left forearm with 0.9% NaCl at [facility]. 13:42:02 Lab results completed and on chart. 13:42:15 Left chest area was prepped with dura-prep and draped in sterile fashion 13:42:17 Alarms reviewed by R. N. 13:42:18 Sharps counted by scrub and verified by R.N. 13:45:48 Vancomycin 1 g I.V.P.B was administered by Sreedhar Kline RN; used for procedure; Verbal order read back and verified. 13:47:56 Vital chart was started 13:50:28 Oxygen 2 l/min etCO2 Nasal cannula was administered by Sreedhar Kline RN; used for procedure; Verbal order read back and verified. 13:54:46 Physician arrived 13:54:47 --------ALL STOP TIME OUT------ 13:54:48 Final Timeout: patient, procedure, and site verified with staff and physician. All members of the team are in agreement. 13:55:06 Left chest site verified by team. 13:55:09 0.9% NaCl 50 ml/hr I.V. was administered by Sreedhar Kline RN; Per physician; Verbal order read back and verified. 13:55:12 Fire Safety Assessment: A--An alcohol-based skin anteseptic being used preoperatively., C--Open oxygen or nitrous oxide is being used., D--An ESU, laser, or fiber-optic light is being used. 13:55:15 Versed 2 mg I.V. was administered by Sreedhar Kline RN; for sedation; Verbal order read back and verified. 13:55:17 Physical assessment completed. ASA score P 2 - A patient with mild systemic disease as per Justin Huggins MD. 13:55:21 Fentanyl 100 mcg I.V. was administered by Sreedhar Kline RN; for sedation; Verbal order read back and verified. 13:55:24 Sedation plan: IV Moderate Sedation Medication:Versed, Fentanyl 13:55:32 Procedure started. 13:55:32 Full Disclosure recording started 13:56:46 MOO.[employer]tr[employer] financial representative Babak Rosales present for procedure. 13:57:11 Pre sharps counted by scrub and verified by RN: Sutures: 10; Sponges: 5; Stick needles: 2; Skin needles: 2; Blade: 1; Cautery: 1 13:57:14 Grounding pad site Left thigh. 13:57:16 Grounding pad site free from injury. 13:57:24 Lidocaine 1% was administered to left subclavicular area by Juvenal Gil MD . 13:57:37 Use device set CHANTAL PPM 13:57:38 Lidocaine 1% 20ml vial x2 added to field was administered by Juvenal Gil MD; for local anesthetic; Verbal order read back and verified. 13:57:39 2-0 Ticron Multipack ([id number]) opened to sterile field. 13:57:39 3-0 Vicryl Single Pack [id number] opened to sterile field. 13:57:40 5-0 Monocryl PS2 [id number] opened to sterile field. 13:57:41 Cautery Tip Wireless Operator opened to sterile field. 13:57:43 Cautery Pushbutton Pencil opened to sterile field. 13:57:44 Mepilex Dressing (403508) opened to sterile field. 13:57:47 Immobilizer Extra Large opened to sterile field. 13:57:58 Vancomycin Irrigation 1 g Topical was administered by Juvenal Gil MD; used for procedure; Verbal order read back and verified. 14:00:59 Incision made to left subclavicular area. 14:01:02 Generator pocket made/opened. 14:01:33 Versed 2 mg I.V. was administered by Sreedhar Kline RN; for sedation; Verbal order read back and verified. 14:01:37 Fentanyl 100 mcg I.V. was administered by Sreedhar Kline RN; for sedation; Verbal order read back and verified. 14:06:15 Medtronic 4574-45 PPM Lead opened to sterile field. 14:06:16 Medtronic 4074-52 PPM Lead opened to sterile field. 14:06:26 Left subclavian vein accessed with 7Fr Peel Away Sheath. 14:06:29 Ventricular lead inserted and advanced. 14:06:33 Left subclavian vein accessed with 7Fr Peel Away Sheath. 14:06:37 Atrial lead inserted and advanced. 14:08:17 Ventricular lead positioned. 14:12:05 VENTRICULAR LEAD TO SHORT, EXCHANGED FOR 58CM 14:13:33 Medtronic 4074-58 PPM Lead opened to sterile field. 14:17:58 Atrial lead positioned. 14:18:12 Ventricular lead tested. 14:18:17 Atrial lead tested. 14:18:20 Peel-a-way sheath was split and removed. 14:19:23 Versed 2 mg I.V. was administered by Sreedhar Kline RN; for sedation; Verbal order read back and verified. 14:20:[address] Generator [id number] opened to sterile field. 14:24:51 PPM Dual was attached to lead(s) and inserted into pocket. 14:25:01 PPM Dual was inserted subcutaneously to left chest. 14:25:08 Device pocket was irrigated with Vancomycin. 14:25:15 Ventricular lead attachment was completed with 2-0 silk. 14:25:18 Atrial lead attachment was completed with 2-0 silk. 14:25:29 Subcutaneous closure was completed with 3-0 vicryl. 14:25:38 Skin closure was completed with 5-0 monocryl. 14:26:21 Parameters-- Generator: Mode: aair=dddr. Lower Rate: 60bpm. Upper Rate: 120bpm. 14:27:04 Parameters--Ventricular P/R Wave: 7.7mV. Current: .5mA; Threshold: .6V; Impedence: 1068OHMS. 14:27:35 Parameters--Atrial P/R Wave: 1.2mV. Current: ?mA; Threshold: .5V; Impedence: 583OHMS. 14:27:46 Lt Chest incision was dressed with Mepilex dressing. 14:29:04 Procedure ended.(Physican Out) 14:30:51 Fluoroscopy time 05.60 minutes. 14:30:57 Fluoroscopy dose: 351 mGy 14:30:57 Flurop Dose total: 351 14:31:08 Dose Area Product 4013 mGy/cm. 14:31:12 Sharps counted by scrub and verified by R.N. 14:31:14 Insertion/operative site no bleeding no hematoma. 14:31:17 Post Procedure Pulses reassessed and unchanged 14:31:23 Post-procedure physical assessment completed. ASA score P 2 - A patient with mild systemic disease as per Justin Huggins MD. 14:31:29 Post procedure rhythm: paced 14:31:32 Estimated blood loss: 10 ml 14:31:35 Post procedure instruction explained to patient.Patient verbalizes understanding. 14:32:29 Procedure type changed to Cath procedure, Diagnostic procedure, PPM/ICD, PPM Dual Implant, Sedation Charges, Moderate Sedation up to 30 minutes 14:32:30 Procedure and supply charges have been captured, reviewed, submitted and are correct. 14:35:56 Procedure Complication : No complications 14:35:59 Vital chart was stopped 14:36:37 Operative report dictated upon procedure completion. 14:36:39 See physician's report for complete and final results. 14:36:41 Report given to Pre/Post Procedure Room. 14:36:43 Patient transfered to Pre/Post Procedure Room with Bed. 14:36:46 Procedure ended. 14:36:46 Full Disclosure recording stopped 14:36:52 End room use (Document Last) 14:37:43 Medtronic Advisa MRI PPM Dual Generator [id number] opened to sterile field. 14:41:16 Immobilizer Large opened to sterile field. Device Usage Item Name Manufacture Quantity Catalog Hospital Part Current Minima l Lot# / Number Charge Number Stock Stock Serial# Code 2-0 Ticron Ethicon 8 [id number] 996946 19574 [id number] 5 Multipack ([id number]) 3-0 Vicryl Ethicon 1 [id number] 062481 120145 639126 5 Single Pack [id number] 5-0 Monocryl Ethicon 1 [id number] 026908 519035 524418 5 PS2 Y495G Cautery Tip Microtek 1 [id number] 072370 279599 180101 5 [employer] Cautery Microtek 1 [id number] 50377 856055 5 Pushbutton [employer] Pencil Mepilex Cardinal 1 073406 998039 739024 809217 5 [facility] ([id number]) Immobilizer Cardinal 1 [id number] 100432 651842 927576 5 Extra Large Health Medtronic Medtronic 1 4574-45 237787 485244 485139 5 4574-45 PPM [id number] Lead EXP .2019-10-12 Medtronic Medtronic 1 4074-52 308884 251254 563181 5 4074-52 PPM [id number] Lead EXP .2020-05-05 Medtronic Medtronic 1 4074-58 139028 075906 328594 5 4074-58 PPM [id number] Lead EXP. 2019-10-14 Medtronic Medtronic 1 [id number] 100283 3021853 622857 5 DAX XT [id number] Generator EXP [id number] .2021-08-12 Medtronic Medtronic 1 [id number] 836457 359561 770182 5 Advisa MRI PPM Dual Generator A2DR01 Immobilizer Cardinal 1 [id number] 421965 374459 718405 5 Large Health Signature Audit [place] Stage Time Signature Unsigned Intra-Procedure 04/03/2020 Margot Sapp 2:37:43 PM RT(R) Intra-Procedure 04/03/2020 Sreedhar Kline RN 2:41:16 PM Intra-Procedure 04/03/2020 Justin Burgos 2:41:43 PM Pina [facility] [address] [place] [address]
[~2020-04-03 10:49] MED LIST: ALDACTONE25 MG PO; BAYER CHEWABLE81 MG PO; ELAVIL25 MG PO; HYDROCHLOROTHIA25 MG PO; HYTRIN5 MG PO; LIPITOR40 MG PO; PLAVIX75 MG PO; ULORIC40 MG PO
[2020-04-03] MEDS ORDERED: BRILINTA90 MG PO (11:08)
[2020-04-03 11:33] VITALS: BP 139/77; Ht 188 cm; Wt 156.8 kg
[2020-04-03 11:44] LABS: HEMATOCRIT 44.5 % (42.0-54.0); HEMOGLOBIN 14.1 g/dL (13.5-17.5); MCH 29.7 pg (26.0-34.0); MCHC 31.7 g/dL (31.0-37.0); MCV 93.9 fL (80.0-100.0); MEAN PLATELET VOLUME 11.3 fL (7.4-10.4); RBC 4.74 10x6/uL (4.20-6.10); WBC 9.2 10x3/uL (4.8-10.8)
[2020-04-03 11:48] LABS: APTT 26.6 SECONDS (22.8-39.4); INR 1.05 (0.85-1.17); PROTIME 13.7 SECONDS (11.6-15.0)
[2020-04-03 11:51] LABS: ANION GAP 13.9 mmol/L (8-16); CALCIUM 8.5 mg/dL (8.5-10.1); CARBON DIOXIDE 27.3 mmol/L (21.0-32.0); CREATININE - SERUM 1.2 mg/dL (0.6-1.3); POTASSIUM - SERUM 4.2 mmol/L (3.5-5.1)
--- NOTE | 2020-04-03 14:51 | NUR ---
PT ARRIVED BY STRETCHER. PLACED ON MONITORS. ASSESSMENT COMPLETED. VSS AT THIS TIME. CALL LIGHT WITHIN REACH. LEFT ARM IN SLING. PT INSTRUCTED ON LIMITS IN MOBILITY. HE VOICED UNDERSTANDING. CALL LIGHT WITHIN REACH.
--- NOTE | 2020-04-03 15:05 | NUR ---
PT SITTING UP IN BED. ALERT AND ORIENTED. LEFT ARM IN SLING. VSS AT THIS TIME. CALL LIGHT WITHIN REACH. PT SET UP WITH SANDWICH TRAY AND DRINK. DENIES NAUSEA.
--- NOTE | 2020-04-03 15:20 | NUR ---
RADIOLOGY AT BEDSIDE FOR CHEST XRAY. TOLERATED WELL. VSS. NO NEEDS AT THIS TIME.
--- NOTE | 2020-04-03 16:04 | NUR ---
REVIEWED CXR REPORT. NO ABNORMAL FINDINGS. PT'S VSS. PIV D/C'D WITH CATH TIP INTACT. TOLERATED WELL. PT INSTRUCTED TO GET DRESSED AT THIS TIME. CALL LIGHT WITHIN REACH.
--- NOTE | 2020-04-03 16:15 | NUR ---
DISCUSSED DISCHARGE INSTRUCTIONS WITH PT. PT VOICED UNDERSTANDING. PT TAKEN TO RESTROOM. VOIDED WITHOUT DIFFICULTY. WAITING ON RIDE HOME.
--- NOTE | 2020-04-03 17:00 | NUR ---
PT SITTING IN ROOM IN WC PER REQUEST, WATCHING TV. L ARM IN SLING, L CHEST DSG C/D/I. C/L IN REACH.
--- NOTE | 2020-04-03 17:25 | NUR ---
PT D/C'D VIA WC TO PRIVATE VEHICLE WITH ALL PAPERWORK AND BELONGINGS.
--- NOTE | 2020-04-05 13:46 | OP ---
PATIENT NAME: PINA CHAUDHRY MEDICAL RECORD: [id number] :50 LOCATION:D[facility] ADMISSION DATE: SURGEON: KEITH CORNEJO MD DATE OF OPERATION: 04/03/2020 PREOPERATIVE DIAGNOSIS: Sick sinus syndrome with pauses. POSTOPERATIVE DIAGNOSIS: Sick sinus syndrome with pauses. PROCEDURE: 1. Left subclavian vein dual lead pacemaker placement. 2. Fluoroscopic interpretation. SURGEON: Keith Cornejo MD CO-SURGEON: Justin Bass MD REPORT OF PROCEDURE: The patient's left chest was prepped and draped in sterile fashion. A 20 mL of 1% lidocaine with epinephrine was infused into the surrounding tissues. A transverse incision was made in the left superior lateral chest and a subcutaneous pouch was made over the pectoral fascia. [place] were used to cannulate the left subclavian vein and guidewires were advanced with ease. Fluoro was used to note that these wires were in good position in the venous system. The dilator trocar device were placed over the wires and the wires and dilators were removed. The leads were advanced into the superior vena cava. At this point, Dr. Bass positioned the leads appropriately in the atrium and ventricle. Once the leads were noted to be in good position, then they were sutured into place with 2-0 TiCron. These leads were affixed to the pacemaker, which was placed into the subcutaneous pouch. We sutured the pacemaker to the pectoral fascia using a single interrupted 2-0 TiCron. We irrigated out the wound with antibiotic solution. The subcutaneous tissues were reapproximated with interrupted 3-0 Vicryl and the skin was closed with running subcutaneous 5-0 Monocryl. COMPLICATIONS: None. CONDITION: Stable. ANESTHESIA: Local MAC. BLOOD LOSS: Minimal. TRANSINT:[id number] Voice Confirmation ID: [id number] DOCUMENT ID: [id number] KEITH CORNEJO MD at 1346 CC: [id number] DICTATION DATE: 04/03/20 1431 LAB ANIMAL TECHNOLOGIST: 04/03/20 2331 [facility] 04/03/20 [place] [id number]
== END 2020-04-03 17:25 | disposition home or self-care (01) ==
LOC: D.CATH 10:49
PROVIDERS: ATTEND Internal Medicine Interventional Cardiology
DX: I49.5 Sick sinus syndrome (principal); I48.0 Paroxysmal atrial fibrillation; R42 Dizziness and giddiness; I10 Essential (primary) hypertension; I36.9 Nonrheumatic tricuspid valve disorder, unspecified; R01.1 Cardiac murmur, unspecified; I25.10 Atherosclerotic heart disease of native coronary artery without angina pectoris